=== PATIENT | female | born 1955 | race Caucasian/White ===

== ENCOUNTER 2018-05-08 19:00 | Emergency (ER) | payer OTHER ==
[2018-05-08 19:33] VITALS: BP 153/73; PULSE 52; TEMP 98.7; BMI 34.2
[2018-05-08] MEDS ORDERED: CYCLOBENZAPRINE HCL 10 MG TABLET (FP) PO ONE (19:44)
[2018-05-08] MEDS ORDERED: IBUPROFEN 600 MG TABLET (FP) PO ONE ×2 (19:44→19:49)
[2018-05-08] MEDS ORDERED: CYCLOBENZAPRINE HCL 10 MG TABLET (FP) ONE (19:49)
--- NOTE | 2018-05-08 19:49 | PDOC ---
History of Present Illness - General Chief Complaint: Injury Stated Complaint: FALL/INJURY Time Seen by Provider: 05/08/18 19:32 History Source: Patient Exam Limitations: No Limitations - History of Present Illness Initial Comments: 05/08/18 19:44 62 year-old female presents to ED status post mechanical fall. Patient states is at work when she had slipped causing him to land on her right knee striking the door frame with her right shoulder and right side of neck. Patient denies LOC states was ambulatory following the incident. Patient has no other complaints at this time. Patient is currently on no anticoagulations therapy and has no open lacerations. Occurred: reports: just prior to arrival Severity: reports: mild Pain Location: reports: lower extremity, neck, upper extremity Method of Injury: Yes: fall Modifying Factors: improves with: None Loss of Consciousness: no loss of consciousness Associated Symptoms (Fall): denies symptoms Past History - Travel Traveled outside of the country in the last 30 days: No - Past Medical History Allergies/Adverse Reactions: Allergies Allergy/AdvReac Type Severity Reaction Status Date / Time shrimp Allergy Severe Hives Verified 05/08/18 19:34 Home Medications: Ambulatory Orders Aspirin [ASA -] 81 mg PO DAILY 05/03/15 Lisinopril 10 mg PO DAILY 05/03/15 Simvastatin 40 mg PO DAILY 05/03/15 Gabapentin 100 mg PO ASDIR 05/08/18 COPD: No Diabetes: Yes (Pre-diabetic) HTN: Yes - Suicide/Smoking/Psychosocial Hx Smoking History: Never smoked Have you smoked in the past 12 months: No Number of Cigarettes Smoked Daily: 0 Information on smoking cessation initiated: No Hx Alcohol Use: No Drug/Substance Use Hx: No Substance Use Type: None Patient Lives Alone: No Lives with/in: spouse/SO Review of Systems - Review of Systems Able to Perform ROS?: No Constitutional: No: Symptoms Reported HEENTM: No: Symptoms Reported Cardiac (ROS): No: Symptoms Reported ABD/GI: No: Symptoms Reported Musculoskeletal: Yes: Joint Pain (rt shoulder), Neck Pain (rt neck) Integumentary: No: Symptoms Reported Neurological: No: Symptoms reported *Physical Exam - Vital Signs Last Vital Signs Temp Pulse Resp BP Pulse Ox 98.7 F 52 L 18 153/73 100 05/08/18 19:30 05/08/18 19:30 05/08/18 19:30 05/08/18 19:30 05/08/18 19:30 - Physical Exam General Appearance: Yes: Nourished, Appropriately Dressed. No: Apparent Distress HEENT: positive: EOMI, JUAN F, TMs Normal, Pharynx Normal. negative: Pale Conjunctivae Neck: positive: Supple, Tender lateral (right upper trapezius. At C1-C2 level). negative: Decreased range of motion, Tender midline Respiratory/Chest: positive: Lungs Clear, Normal Breath Sounds. negative: Chest Tender, Respiratory Distress, Accessory Muscle Use Cardiovascular: positive: Regular Rhythm, Bradycardia. negative: Murmur Extremity: positive: Normal Capillary Refill, Normal Inspection, Normal Range of Motion. negative: Tender Integumentary: positive: Normal Color, Warm, Moist. negative: Swelling, Ecchymosis Neurologic: positive: Motor Strength 5/5 (ambulatory) Medical Decision Making - Medical Decision Making 05/08/18 19:47 Status post mechanical fall. Patient exam had no midline cervical tenderness right shoulder limited mobility of point tenderness to her shoulder or knee. Patient was ordered for Flexeril and Motrin secondary to contusion *DC/Admit/Observation/Transfer Diagnosis at time of Disposition: Contusion - Discharge Dispostion Disposition: HOME Condition at time of disposition: Good - Referrals - Patient Instructions Printed Discharge Instructions: DI for Contusion Additional Instructions: Please take Motrin and Flexeril as prescribed. Rest and apply ice to affected areas x 2-3 days as much as you can tolerate - Post Discharge Activity
== END 2018-05-08 19:53 | disposition home or self-care (01) ==
LOC: JERFT 19:00
DX: S40.011A Contusion of right shoulder, initial encounter (principal); S80.01XA Contusion of right knee, initial encounter; W01.198A Fall on same level from slipping, tripping and stumbling with subsequent striking against other object, initial encounter; Y93.89 Activity, other specified; Y92.89 Other specified places as the place of occurrence of the external cause; Y99.0 Civilian activity done for income or pay; I10 Essential (primary) hypertension; R73.03 Prediabetes
CPT/HCPCS: 99281-25

== ENCOUNTER 2023-03-30 11:47 | Observation (INO) | payer OTHER ==
[2023-03-30] MEDS ORDERED: SODIUM CHLORIDE 0.9% 500 ML INFUS.BAG IV ONE (13:01)
[2023-03-30] MEDS ORDERED: ONDANSETRON 4 MG/2 ML VIAL IVPUSH ONE (13:02)
[2023-03-30] MEDS ORDERED: FAMOTIDINE 20 MG/50 ML IVPB 20 MG/50 ML MG IVPB ONE (13:02)
[2023-03-30] MEDS ORDERED: ONDANSETRON 4 MG/2 ML VIAL ONE (13:18)
[2023-03-30] MEDS ORDERED: FAMOTIDINE 10 MG/ML VIAL IVPB ONE (13:19)
[2023-03-30 14:13] LABS: BASO % 0.3 % (0-2.0); EOS % 0.9 % (0-4.5); HEMATOCRIT 36.2 % (32.4-45.2); HEMOGLOBIN 11.8 GM/dL (10.7-15.3); LYMPH % 27.1 % (8-40); MCH 26.2 pg (25.7-33.7); MCHC 32.5 g/dl (32.0-36.0); MEAN CELL VOLUME 80.5 fl (80-96); MEAN PLT VOLUME 8.3 fl (7.5-11.1); MONO % 7.6 % (3.8-10.2); NEUT % 64.1 % (42.8-82.8); PLATELET COUNT 388 10^3/uL (134-434); RDW 14.3 % (11.6-15.6); WHITE BLOOD COUNT 8.3 K/mm3 (4.0-10.0)
[2023-03-30 14:18] LABS: EPI CELLS 3 /uL (0-25.1); HYALINE CASTS 0 /uL (0-3.1); PH,URINE 5.5 (5.0-8.0); URINE APPEARANCE CLEAR; URINE BACTERIA 2 /uL (0-1359); URINE BILIRUBIN NEGATIVE (NEGATIVE); URINE COLOR YELLOW; URINE GLUCOSE (UA) NEGATIVE (NEGATIVE); URINE KETONE 1+ (NEGATIVE); URINE LEUK ESTERASE NEGATIVE (NEGATIVE); URINE NITRITE NEGATIVE (NEGATIVE); URINE PROTEIN NEGATIVE (NEGATIVE); URINE RBC 15 /uL (0-23.9); URINE UROBILINOGEN 0.2 mg/dL (0.2-1.0); URINE WBC 1 /uL (0-25.8)
[2023-03-30 14:47] LABS: CHLORIDE 97 mmol/L (98-107); POTASSIUM 3.6 mmol/L (3.5-5.1); SODIUM 135 mmol/L (136-145)
[2023-03-30 14:49] LABS: ALBUMIN 3.7 g/dl (3.4-5.0); CALCIUM 7.8 mg/dL (8.5-10.1)
[2023-03-30 14:50] LABS: ANION GAP 10 MMOL/L (8-16); BLOOD UREA NITROGEN 9.8 mg/dL (7-18); CO2 27 mmol/L (21-32); GLUCOSE,RANDOM 109 mg/dL (74-106)
[2023-03-30 14:52] LABS: CREATININE 1.3 mg/dL (0.55-1.3)
[2023-03-30 14:53] LABS: SGOT/AST 20 U/L (15-37); SGPT/ALT 19 U/L (13-61)
[2023-03-30 14:54] LABS: BILIRUBIN,TOTAL 0.3 mg/dL (0.2-1); TOT PROT 7.6 g/dl (6.4-8.2)
[2023-03-30 14:55] LABS: ALK PHOS 52 U/L (45-117)
[2023-03-30 14:56] LABS: MAGNESIUM 0.5 mg/dL (1.8-2.4)
[2023-03-30] MEDS ORDERED: CALCIUM GLUCONATE 10% - 1,000 MG/10 ML VIAL IVPB ONE (15:02)
[2023-03-30] MEDS ORDERED: MAGNESIUM SULF 50% (8.12 MEQ/2 ML-1 GM VIAL) IVPB ONE (15:03)
[2023-03-30] MEDS ORDERED: CALCIUM GLUCONATE 10% - 1,000 MG/10 ML VIAL ONE (15:18)
[2023-03-30] MEDS ORDERED: MAGNESIUM SULFATE IN WATER 2 GM/50 ML IVPB IVPB ONE (15:19)
[2023-03-30 15:51] LABS: VENOUS BASE EXCESS -1.3 mmol/L (-2-2); VENOUS O2 SATURATION 58.9 % (70-80); VENOUS PCO2 43.6 mmHg (38-52); VENOUS PH 7.362 (7.310-7.410)
[2023-03-30] MEDS ORDERED: ONDANSETRON 4 MG/2 ML VIAL IVPUSH PRN (15:58)
[2023-03-30 22:46] LABS: CALCIUM 7.5 mg/dL (8.5-10.1); MAGNESIUM 1.5 mg/dL (1.8-2.4)
[2023-03-31 07:54] LABS: BASO % 0.5 % (0-2.0); EOS % 2.5 % (0-4.5); HEMATOCRIT 32.9 % (32.4-45.2); HEMOGLOBIN 10.5 GM/dL (10.7-15.3); LYMPH % 27.7 % (8-40); MCH 26.4 pg (25.7-33.7); MCHC 31.9 g/dl (32.0-36.0); MEAN CELL VOLUME 82.8 fl (80-96); MEAN PLT VOLUME 8.5 fl (7.5-11.1); MONO % 10.2 % (3.8-10.2); NEUT % 59.1 % (42.8-82.8); PLATELET COUNT 353 10^3/uL (134-434); RBC 3.98 M/mm3 (3.60-5.2); RDW 14.1 % (11.6-15.6); WHITE BLOOD COUNT 6.4 K/mm3 (4.0-10.0)
[2023-03-31 08:12] LABS: POTASSIUM 3.9 mmol/L (3.5-5.1)
[2023-03-31 08:13] LABS: CALCIUM 7.7 mg/dL (8.5-10.1)
[2023-03-31 08:14] LABS: BLOOD UREA NITROGEN 6.6 mg/dL (7-18); MAGNESIUM 1.3 mg/dL (1.8-2.4)
[2023-03-31 08:16] LABS: CREATININE 1.1 mg/dL (0.55-1.3)
[2023-03-31] MEDS ORDERED: PANTOPRAZOLE 40 MG TABLET PO ONE (10:09)
[2023-03-31] MEDS ORDERED: ASPIRIN 81 MG CHEWABLE TABLETS ONE (10:09)
[2023-03-31] MEDS: ASPIRIN 81 MG CHEWABLE TABLETS PO SCH (10:13)
[2023-03-31] MEDS: PANTOPRAZOLE 40 MG TABLET PO SCH (10:13)
[2023-03-31] MEDS ORDERED: MAGNESIUM SULFATE IN WATER 2 GM/50 ML IVPB IVPB ONE (11:49)
[2023-03-31] MEDS ORDERED: CALCIUM GLUC IN NACL, ISO-OSM 1 GM/50 ML BAG IVPB ONE (11:50)
[2023-03-31] MEDS ORDERED: CALCIUM GLUCONATE 10% - 1,000 MG/10 ML VIAL ONE (12:17)
[2023-03-31 16:57] VITALS: BMI 30.2
[2023-03-31] MEDS: ACETAMINOPHEN 500 MG TABLET (FP) PO PRN ×2 (17:01→21:39)
[2023-04-01] MEDS: ACETAMINOPHEN 500 MG TABLET (FP) PO PRN (09:51)
[2023-04-01] MEDS: PANTOPRAZOLE 40 MG TABLET PO SCH (09:52)
[2023-04-01] MEDS: ASPIRIN 81 MG CHEWABLE TABLETS PO SCH (09:52)
[2023-04-01 11:54] LABS: HEMATOCRIT 35.8 % (32.4-45.2); HEMOGLOBIN 11.2 GM/dL (10.7-15.3); MCHC 31.4 g/dl (32.0-36.0); MEAN CELL VOLUME 82.9 fl (80-96); MEAN PLT VOLUME 8.7 fl (7.5-11.1); PLATELET COUNT 396 10^3/uL (134-434); RBC 4.31 M/mm3 (3.60-5.2); RDW 14.2 % (11.6-15.6); WHITE BLOOD COUNT 7.8 K/mm3 (4.0-10.0)
[2023-04-01 12:11] LABS: POTASSIUM 4.1 mmol/L (3.5-5.1)
[2023-04-01 12:14] LABS: ALBUMIN 3.4 g/dl (3.4-5.0); BLOOD UREA NITROGEN 8.8 mg/dL (7-18); CALCIUM 8.7 mg/dL (8.5-10.1); MAGNESIUM 1.9 mg/dL (1.8-2.4)
[2023-04-01 12:17] LABS: CREATININE 1.1 mg/dL (0.55-1.3)
[2023-04-01 12:19] LABS: BILIRUBIN,TOTAL 0.3 mg/dL (0.2-1)
[2023-04-01 16:04] VITALS: BP 127/79; PULSE 76; RESP 19; TEMP 99
== END 2023-04-01 18:49 | disposition home or self-care (01) ==
LOC: JER 11:47 → JERBED 15:11 → J4W 03-31 14:25
PROVIDERS: ADMIT Internal Medicine; ATTEND Internal Medicine
PROC: 3E033GC Introduction of Other Therapeutic Substance into Peripheral Vein, Percutaneous Approach (ICD-10-PCS; principal; 2023-03-30)
PROC: 3E033GC Introduction of Other Therapeutic Substance into Peripheral Vein, Percutaneous Approach (ICD-10-PCS; 2023-03-30)
DX: E88.9 Metabolic disorder, unspecified (principal); E83.42 Hypomagnesemia; E83.51 Hypocalcemia; R22.0 Localized swelling, mass and lump, head; K21.9 Gastro-esophageal reflux disease without esophagitis; R19.7 Diarrhea, unspecified; E11.9 Type 2 diabetes mellitus without complications; Z91.013 Allergy to seafood; I10 Essential (primary) hypertension
CPT/HCPCS: 36415; 70487-TC; 80048; 80053; 81003; 82306; 82310; 82330; 82803; 82962; 83735; 83970; 84100; 84484; 85025; 85027; 87086; 93005; 93010; 96365; 96367; 96375; 99285-25; G0378; Q9967

== ENCOUNTER 2024-07-11 12:14 | Emergency (ER) | payer OTHER ==
[2024-07-11 12:27] VITALS: BP 99/63; PULSE 58; RESP 20; TEMP 98.2; BMI 30.5
[2024-07-11] MEDS ORDERED: LIDOCAINE 5% TOPICAL PATCH ONE (13:38)
[2024-07-11] MEDS ORDERED: IBUPROFEN 400 MG TABLET (FP) PO ONE (13:38)
[2024-07-11] MEDS: LIDOCAINE 5% TOPICAL PATCH TP ONE (13:42)
[2024-07-11] MEDS: IBUPROFEN 400 MG TABLET (FP) PO ONE (13:43)
[2024-07-11] MEDS ORDERED: LIDOCAINE PATCH REMOVAL MC SCH (22:00)
== END 2024-07-11 16:58 | disposition home or self-care (01) ==
LOC: JER 12:14
DX: M25.531 Pain in right wrist (principal); M25.532 Pain in left wrist; G89.29 Other chronic pain; R20.2 Paresthesia of skin
CPT/HCPCS: 73090-TC-RT-FY; 73110-TC-RT-FY; 73130-TC-RT-FY; 93005; 93010; 99284-25

== ENCOUNTER 2024-07-21 10:51 | Emergency (ER) | payer OTHER ==
[2024-07-21 11:02] VITALS: BP 104/64; PULSE 61; RESP 16; TEMP 97.7; BMI 31.8
[2024-07-21] MEDS ORDERED: IBUPROFEN 600 MG TABLET (FP) PO ONE (11:35)
[2024-07-21] MEDS: IBUPROFEN 600 MG TABLET (FP) PO ONE (11:40)
== END 2024-07-21 14:13 | disposition home or self-care (01) ==
LOC: JERFT 10:51
DX: M25.561 Pain in right knee (principal); M79.631 Pain in right forearm; M79.632 Pain in left forearm; M25.531 Pain in right wrist; M25.532 Pain in left wrist; W01.0XXA Fall on same level from slipping, tripping and stumbling without subsequent striking against object, initial encounter; Y93.01 Activity, walking, marching and hiking
CPT/HCPCS: 73090-TC-LT-FY; 73090-TC-RT-FY; 73110-TC-LT-FY; 73110-TC-RT-FY; 73130-TC-LT-FY; 73130-TC-RT-FY; 73562-TC-LT-FY; 73562-TC-RT-FY; 99284-25